=== PATIENT | female | born 1995 | race Caucasian/White ===

== ENCOUNTER → 2017-02-07 | Day surgery (SDC) | payer MEDICAID ==
[~2017-02-07] VITALS: Ht 165.1 cm; Wt 81.1 kg
[~2017-02-07] MED LIST: ACETAMINOPHEN325 MG PO; APNO TOP; LANSINOH7 GM TOP; MOTRIN800 MG PO; NICODERM / HABIT7 MG TRANS; PERCOCET 5-3251 EACH PO; PRENATAL 1+1)(P1 TAB PO; TUMS200 MG PO; VISTARIL25 M1 PO; ZOLOFT50 MG PO
--- NOTE | ~2017-02-07 | OR ---
PATIENT'S NAME: MIRNA BROUSSARD [facility] AGE: 22 Y [address] ROOM: [place] [id number] LOCATION: GEND ADMIT DATE: 02/07/2017 OR/Procedure Report DISCHARGE DATE: FAMILY PHYSICIAN: PALOMO NUÑEZ MD ATTENDING PHYSICIAN: BERNABE WHITING SURGEON: Oksana Herring MD CARVER HAND: DATE OF PROCEDURE: 02/07/2017 PROCEDURE PERFORMED: Esophagogastroduodenoscopy. INDICATION: Abdominal pain and diarrhea. MEDICATIONS: Please see Anesthesiology record for details. CONSENT: The risks/benefits/alternatives were discussed and the patient or her power of assistant county attorney expressed understanding and agreed to proceed. Informed consent was obtained and placed in the chart. Time-out was completed prior to starting the procedure. DESCRIPTION OF PROCEDURE: Patient was placed in the left lateral decubitus position. One-lead EKG monitoring was used along with intermittent blood pressure monitoring and pulse oximetry. Bite block was placed in the patient's mouth. The above medications were given and titrated to response. Once adequate sedation was completed, the endoscope was passed through the patient's mouth into the posterior oropharynx. The endoscope was then passed into the esophagus, stomach and duodenal bulb. The duodenum was examined through the third portion. The endoscope was then withdrawn into the stomach. In the stomach, retroflexion was completed. The scope was then straightened and withdrawn from the patient. The patient tolerated the procedure well. There were no complications. SUMMARY OF FINDINGS: 1. Normal esophagus. 2. Normal stomach with biopsies to rule out H. pylori. 3. Normal duodenum with biopsies to rule out celiac disease. ASSESSMENT AND PLAN: Abdominal pain and diarrhea: Nothing seen on esophagogastroduodenoscopy to explain patient's symptoms. We will proceed with colonoscopy. Oksana HERRING MD PATIENT'S NAME: MIRNA BROUSSARD [facility] AGE: 22 Y [address] ROOM: [place] [address] LOCATION: GEND ADMIT DATE: 02/07/2017 OR/Procedure Report DISCHARGE DATE: FAMILY PHYSICIAN: PALOMO NUÑEZ MD ATTENDING PHYSICIAN: BERNABE WHITING/valentinl /[id number] d: 02/07/17 1415 t: 02/11/17 1428, OPERATIVE SUMMARY
--- NOTE | ~2017-02-07 | OR ---
PATIENT'S NAME: MIRNA BROUSSARD [facility] AGE: 22 Y [address] ROOM: [place] [address] LOCATION: [facility] ADMIT DATE: 02/07/2017 OR/Procedure Report DISCHARGE DATE: FAMILY PHYSICIAN: PALOMO NUÑEZ MD ATTENDING PHYSICIAN: BERNABE WHITING SURGEON: Oksana Herring MD [facility] SPECIALIST: DATE OF PROCEDURE: 02/07/2017 PROCEDURE: Colonoscopy with biopsy. INDICATIONS: Diarrhea and abdominal pain. MEDICATIONS: Please see anesthesiology record for details. CONSENT: The risks/benefits/alternatives were discussed and the patient or her power of patent prosecution attorney expressed understanding and agreed to proceed. Informed consent was obtained and placed on the chart. Time-out was completed prior to starting the procedure. PROCEDURE: The patient was placed in the left lateral decubitus position. One lead EKG monitoring was used along with intermittent blood pressure monitoring and pulse oximetry. The above medications were given and titrated to response. Once adequate sedation was completed, rectal exam was performed. The colonoscope was then passed through the rectum, into the sigmoid colon. The scope was then passed through the descending, transverse and ascending colon. The scope was then passed into the cecum. The cecum was identified by the ileocecal valve and appendiceal orifice. The scope was then withdrawn. On withdrawal, the mucosa of the colon was examined. In the rectum, retroflexion was completed. The scope was then withdrawn from the patient. The patient tolerated the procedure well. There were no complications. SUMMARY OF FINDINGS: 1. Normal colonic mucosa from the rectum to the cecum. There were no polyps seen. 2. Multiple biopsies were taken throughout the colon to rule out microscopic colitis. 3. The terminal ileum was intubated and appeared completely normal. 4. Internal hemorrhage, non bleeding. ASSESSMENT AND PLAN: Diarrhea and rectal bleeding, abdominal pain. I suspect the patient's symptoms are secondary to irritable bowel syndrome with intermittent bleeding from internal hemorrhage. We would recommend to follow up in clinic for assistance with management of her symptoms. She will likely need to make dietary changes and can use medications per symptomatic control PATIENT'S NAME: MIRNA BROUSSARD [facility] AGE: 22 Y [address] ROOM: [place] [address] LOCATION: GEND ADMIT DATE: 02/07/2017 OR/Procedure Report DISCHARGE DATE: FAMILY PHYSICIAN: PALOMO NUÑEZ MD ATTENDING PHYSICIAN: BERNABE WHITING of diarrhea. J COLLEEN HERRING MD JRT/modl /[id number] d: 02/07/17 1423 t: 02/11/17 1431, OPERATIVE SUMMARY
== END ==
LOC: GPOC 02-06 13:00 → GEND 07:54
PROC: 0DB68ZX Excision of Stomach, Via Natural or Artificial Opening Endoscopic, Diagnostic (ICD-10-PCS; principal; 2017-02-07)
PROC: 0DB88ZX Excision of Small Intestine, Via Natural or Artificial Opening Endoscopic, Diagnostic (ICD-10-PCS; 2017-02-07)
PROC: 0DBE8ZX Excision of Large Intestine, Via Natural or Artificial Opening Endoscopic, Diagnostic (ICD-10-PCS; 2017-02-07)
DX: K64.8 Other hemorrhoids (principal); F32.9 Major depressive disorder, single episode, unspecified; F17.210 Nicotine dependence, cigarettes, uncomplicated; Z79.899 Other long term (current) drug therapy; Z98.890 Other specified postprocedural states
CPT/HCPCS: J7030

== ENCOUNTER 2017-03-08 22:47 | Emergency (ER) | payer MEDICAID ==
--- NOTE | ~2017-03-08 | ER ---
PATIENT'S NAME: BOBO [facility] AGE: 22 Y [address] ROOM: [place] [address] LOCATION: [facility] ADMIT DATE: 03/08/2017 ER/Outpatient Report DISCHARGE DATE: 03/09/2017 FAMILY PHYSICIAN: Mian Jacob MD ATTENDING PHYSICIAN: Brit Doherty Time of Arrival: 2247 hours. Time Seen: 2335 hours. IDENTIFICATION: A 22-year-old female. CHIEF COMPLAINT: Possible food poisoning. HISTORY OF PRESENT ILLNESS: The patient is a 22-year-old female [facility] and around 7:30 developed nausea, vomiting, and 1 loose stool. No blood in her stools. No dark, tarry, or black stools. No other ill contacts. No fever or chills. She is weak and lightheaded. ALLERGIES: NO KNOWN DRUG ALLERGIES. CURRENT MEDICATIONS: Sertraline 100 mg daily. MEDICAL PROBLEMS: Irritable bowel syndrome and depression. PRIOR SURGERIES: EGD and colonoscopy, section x2, T and A, and tympanostomy tubes. SOCIAL HISTORY: The patient works at [employer]. Lives here in [place]. Tobacco use, 1 pack per day. Alcohol use, some. Drug use, denies. REVIEW OF SYSTEMS: All systems reviewed and negative other than what is noted in the HPI. PHYSICAL EXAMINATION: VITAL SIGNS: Height 5 feet 5 inches and weight 84.3 kg. Blood pressure 127/81, pulse 93, respirations 16, temperature 99, and saturations 99% on room air. GENERAL: A 22-year-old female, in no acute distress. PATIENT'S NAME: BOBO [facility] AGE: 22 Y [address] ROOM: [place] [address] LOCATION: ED ADMIT DATE: 03/08/2017 ER/Outpatient Report DISCHARGE DATE: 03/09/2017 FAMILY PHYSICIAN: Mian Jacob MD ATTENDING PHYSICIAN: Brit Doherty HEENT: Unremarkable. LUNGS: Clear to auscultation. HEART: Regular rate and rhythm. ABDOMEN: Soft, nondistended, and nontender. SKIN: [place], warm, and dry. No lesions or rashes noted. EMERGENCY DEPARTMENT COURSE: The patient was given 4 mg of ODT Zofran with no improvement. An IV was initiated. She was given 1 L of IV fluids, normal saline plus 4 mg IV Zofran and her symptoms improved. Hemoglobin 16.1, hematocrit 47, platelets 281, and white count 14.1 with 82% neutrophils. Sodium 140, potassium 3.5, chloride 105, CO2 26, BUN 10, creatinine 0.9, and blood sugar 86. Liver enzymes normal. Amylase 47, lipase 110. HCG less than 1. The patient had no diarrhea stools while she was here. IMPRESSION: Gastroenteritis. PLAN: Home to rest and off work for 1 day. Outpatient stool sample. Clear liquids in small amounts at frequent intervals. Advance diet as tolerated. Zofran 4 mg ODT one p.o. q.6 hours p.r.n. nausea, dispensed 2 with 0 refills and follow up with Dr. Jacob in 1 day. Follow up sooner if any problems or concerns. The patient understands and agrees, and all questions have been answered. BRIT DOHERTY MD CAR/modl /[id number] d: 03/09/17 0313 t: 03/10/17 0346, OUTPATIENT REPORT
[2017-03-09 00:23] LABS: BASOPHIL % 0.2 %; EOSINOPHIL # 0.2 K/uL (0.0-0.5); EOSINOPHIL % 1.3 %; HEMOGLOBIN 16.1 g/dL (11.0-15.0); IMMATURE GRANULOCYTE # 0.1 K/uL (0.0-0.3); IMMATURE GRANULOCYTE % 0.4 %; LYMPHOCYTE # 1.5 K/uL (0.8-4.0); LYMPHOCYTE % 10.3 %; MCH 31.5 pg (27.0-34.0); MCHC 34.3 gm/dL (32.0-36.5); MONOCYTE # 0.8 K/uL (0.0-1.0); MONOCYTE % 5.8 %; MPV 10.4 fl (9.4-12.4); NEUTROPHIL # (ANC) 11.6 K/uL (1.8-7.8); NRBC % 0 /100WBC (0-0.00); PLATELET COUNT 281 K/uL (150-450); RBC 5.11 M/uL (3.50-5.00); RDW-CV 12.5 % (11.9-14.6); WBC 14.1 K/uL (4.0-11.0)
[2017-03-09 00:44] LABS: ALBUMIN 4.4 gm/dL (3.5-5.0); ALK PHOS 83 IU/L (33-138); ALT 22 IU/L (12-78); ANION GAP 12.5 (10.0-19.0); AST 16 IU/L (10-40); BLOOD UREA NITROGEN 10 mg/dL (6-24); CALCIUM 9.2 mg/dL (8.5-10.5); CHLORIDE 105 mMol/L (96-110); CO2 26 mMol/L (22-32); CREATININE 0.9 mg/dL (0.5-1.1); ESTIMATED GFR (MDRD EQUATION) > 60; POTASSIUM 3.5 mMol/L (3.7-5.1); SODIUM 140 mMol/L (135-145); TOTAL BILIRUBIN 0.7 mg/dL (0.0-1.5); TOTAL PROTEIN 8.6 g/dL (6.0-8.4)
== END 2017-03-09 01:31 | disposition disaster alternative care site (69) ==
LOC: GMED 22:47
PROVIDERS: Family Medicine
DX: K52.9 Noninfective gastroenteritis and colitis, unspecified (principal); F32.9 Major depressive disorder, single episode, unspecified; K58.9 Irritable bowel syndrome, unspecified; F17.210 Nicotine dependence, cigarettes, uncomplicated; Z98.890 Other specified postprocedural states; Z79.899 Other long term (current) drug therapy
CPT/HCPCS: J2405; J7030